=== PATIENT | male | born 1945 | race Caucasian/White ===

== ENCOUNTER 2017-06-10 17:41 | Inpatient (IN) | payer MEDICARE, OTHER ==
[2017-06-10 18:39] LABS: #Lymphocytes 1.8 thou/uL (1.20-3.40); #Monocytes 1.4 thou/uL (0.11-0.59); #Neutrophils 9.9 thou/uL (1.40-6.50); %Basophils 0.1 % (0.0-1.0); %Eosinophils 0.2 % (0.0-10.0); %Lymphocytes 13.7 % (21.0-51.0); %Monocytes 10.7 % (0.0-10.0); Hematocrit 35.8 % (42.0-52.0); Red Blood Cell (RBC) Count 3.73 mill/uL (4.70-6.10); White Blood Cell (WBC) Count 13.1 thou/uL (4.8-10.8)
[2017-06-10] MEDS ORDERED: Acetaminophen 500 MG TAB ONE (18:43)
[2017-06-10 18:47] LABS: PTT 30.7 SEC (22.9-36.1)
[2017-06-10 18:59] LABS: ALT (SGPT) 12 U/L (8-55); AST (SGOT) 21 U/L (5-34); Alkaline Phosphatase 88 U/L (40-150); Anion Gap 15 mmol/L (10-20); BUN (Urea Nitrogen) 14 mg/dL (8.4-25.7); CK (CPK) 216 U/L (30-200); Calc. Creatinine Clearance 0 mL/min (70-130); Calcium 8.9 mg/dL (7.8-10.44); Carbon Dioxide 25 mmol/L (23-31); Chloride 101 mmol/L (98-107); Estimated GFR-MDRD 86; Globulin 3.9 g/dL (2.4-3.5); Lipase 8 U/L (8-78); Protein, Total 6.6 g/dL (5.8-8.1)
--- NOTE | 2017-06-10 19:00 | RAD ---
RADIOGRAPH CHEST 1 VIEW: HISTORY: 71-year-old male with atrial fibrillation. FINDINGS: There are no air space densities, pulmonary edema, pneumothorax, or cardiomegaly. The lateral costo phrenic angles are sharp. There is a right suprahilar, paramediastinal pulmonary mass IMPRESSION: 1. No acute cardiopulmonary findings. 2. right suprahilar, paramediastinal pulmonary mass: evidence for lung cancer. See report of CTA of chest. kinza POS: TRUDI
[2017-06-10 19:06] LABS: Troponin I 0.131 ng/mL (< 0.028)
[2017-06-10 19:25] LABS: Lactic Acid - Sepsis 3.5 mmol/L (0.5-2.2)
[2017-06-10] MEDS ORDERED: Heparin 5,000 UNITS/ML VIAL ONE (19:30)
[2017-06-10] MEDS ORDERED: Piperacillin/Tazobactam 4.5 GM VIAL ONE (20:18)
[2017-06-10] MEDS ORDERED: Sodium Chloride 0.9% 100 ML ONE (20:18)
[2017-06-10 20:47] LABS: Prothrombin Time 17.2 SEC (12.0-14.7)
[2017-06-10] MEDS ORDERED: Acetaminophen 325 MG TAB PO PRN (20:48)
--- NOTE | 2017-06-10 21:06 | PDOC.EVN ---
Event Note - Event Note Event Note: [id number] H&P Dictated 1. Acute bilateral PE 2. SEPSIS 3. Afib RVR 4. htn 5. Lung mass Plan: see orders
--- NOTE | 2017-06-10 21:29 | CT ---
CT BRAIN NONCONTRAST: DATE: 06-10-17 TIME: 8:59 p.m. HISTORY: 71-year-old male with lung cancer, status post loss of consciousness. Rule out brain metastases. COMPARISON: None. FINDINGS: There is an approximately 2.5 x 1.5 cm well-circumscribed mass with moderately high attenuation loca justin along the anterior aspect of the tentorium cerebelli, to the left of midline. It displaces and m ildly distorts the left superior cerebellar peduncle and left inferior colliculus, mildly distorting without obstructing the aqueduct of Sylvius. There is no other area of mass effect. No midline shift. There is diffuse atrophy of the brain. No o bstructive hydrocephalus. No acute intraaxial or extraaxial hemorrhage, midline shift, or extraaxial fluid collection. The calvarium is intact. There is an old, depressed right zygomatic arch fracture . There are bilateral old lamina papyracea deformities. Small air fluid level in the right maxillary sinus. The rest of the paranasal sinuses, and the bilateral tympanomastoid cavities are clear. IMPRESSION: 1. An approximately 2.5 x 1.5 cm mass at the left tentorium cerebelli causing mild distortion of the left brachium conjunctivum (superior cerebellar peduncle). Differential diagnosis is meningoma tan claudia metastasis. 2. Recommend MRI of the brain with and without contrast for further evaluation. 3. Old fractures of right zygomatic arch and bilateral medial orbital magallanes. RAJI Shepard POS: TRUDI
--- NOTE | 2017-06-10 21:52 | CT ---
CTA THORAX WITH CONTRAST: (Computed Tomographic Angiography, chest(noncoronary) with contrast material, and image postprocessi ng) (PE protocol) HISTORY: 71-year-old male with atrial fibrillation with loss of consciousness, found down. Positive D-Dimer. Dr. Ivan discussed all important findings with Dr. Andre at time of this dictation. TECHNIQUE: IV injection of iodinated contrast: Isovue Scan acquisition timing attempted to coincide with iodinated contrast bolus reaching maximal density in pulmonary arteries. 3D MIP reconstructions. FINDINGS: There is moderately heavy clot burden in the left main pulmonary artery extending into left lower lo be pulmonary artery and its first order branches. There is also clot in the peripheral portion of th e right main pulmonary artery extending into the right lower lobe pulmonary artery and its first and second order branches. There is no clot in the pulmonic trunk. There is an approximately 7.5 cm anteroposterior x 2.5 cm transverse x 8 cm craniocaudal neoplastic pulmonary tumor mass in the right paramediastinal portion of the right upper lobe. It envelopes the right upper lobe bronchus, causing complete obstruction there. It severely narrows the origin of the anterior segmental branch of the right upper lobe bronchus. A few centimeters anterior/peripheral to this, there is a second primary spiculated lesion measuring approximately 1 x 1.5 cm, in the anterior segment of the right upper lobe, slightly anterior to the right hilum. There is an approximately 1 x 1.5 cm round soft tissue mass located somewhat peripherally in the lef t lower hilum, at a bifurcation of left lower lobe bronchi and pulmonary arteries. There is an approximately 0.7 cm noncalcified pulmonary nodule at the anterior aspect of the left lo wer lobe abutting the major fissure. There is a similar pulmonary nodule in the right middle lobe. T hese could represent pulmonary metastases. There is a 6 x 5.5 cm soft tissue mass surrounding the head of the left clavicle, causing bone destr uction. No pleural effusion or pneumothorax. There is an enlarged 2.5 x 1.5 cm right anterior paratracheal malignant mediastinal lymph node. No m ediastinal lymph nodes across the midline to the left. Approximately 2 cm malignant subcarinal media stinal lymph node is noted. No cardiomegaly. No thoracic aortic aneurysm or dissection. Large 5 x 4 cm left adrenal mass. 3.5 x 3 cm left adrenal mass. Irregularly shaped 3 x 2.5 cm metastatic mass i n the subcutaneous fat abutting the left lateral rib cage. There is a similar, but smaller such soft tissue mass abutting the left anterolateral chest wall slightly inferior and anterior to it, measur ing approximately 2 x 1.5 cm. IMPRESSION: 1. Bilateral central pulmonary thromboembolism with significant clot burden. 2. Large right upper lobe paramediastinal pulmonary tumor mass: evidence for primary lung cancer. 3. Much smaller satellite lesion in the anterior segment of the right upper lobe, which could be a s econdary primary lung cancer. 4. Malignant mediastinal lymphadenopathy. 5. Possibly a third primary small left lower lobe lung cancer abutting the left inferior hilum. 6. Two tiny noncalcified pulmonary nodules, one in the left lower lobe and one in the right middle l obe (versus anterior segment of right upper lobe), which could be pulmonary metastases. 7. Large metastatic mass destroying the head of the left clavicle. 8. Superficial soft tissue metastatic masses abutting the left lateral chest wall, two of them. 9. Bilateral adrenal metastatic masses. Code CR jn POS: TRUDI
[2017-06-10] MEDS ORDERED: Vancomycin HCl 1.25 GM in Sodium Chloride 0.9% 250 ML 250 ML IVPB SCH (22:45)
[2017-06-10 23:09] LABS: Troponin I 0.462 ng/mL (< 0.028)
--- NOTE | 2017-06-10 23:09 | ULT ---
ULTRASOUND WITH DOPPLER DUPLEX VENOUS LOWER EXTREMITIES BILATERAL: HISTORY: 71-year-old male with bilateral lower extremity edema. TECHNIQUE: Color flow Doppler, spectral waveform analysis of pulsed Doppler, and segovia-scale imaging with compre ssion and augmentation, were used to evaluate the bilateral common femoral, femoral, popliteal, post erior tibial, and superficial femoral, veins; and the proximal portions of the profunda femoral and greater saphenous, veins. FINDINGS: There is noncompressibility of several expanded veins filled with clot bilaterally. On the right, this involves the proximal, mid and distal portions of the superficial femoral vein, e xtending into the popliteal vein and the posterior tibial vein. There is blood flow around the clot. On the left, this involves the distal portion of the popliteal vein, and the posterior tibial vein w here there is no blood flow. IMPRESSION: Positive for bilateral acute deep vein thrombosis. RAJI Shepard POS: TRUDI
[2017-06-10 23:58] VITALS: BMI 25.5
[2017-06-11] MEDS: Sodium Chloride 0.9% 1,000 ML IV SCH ×2 (00:15→15:55)
[2017-06-11] MEDS: Diltiazem HCl 125 MG, Admixture Fee 1 EACH in Sodium Chloride 0.9% 100 ML SLOW IVP SCH ×2 (00:16→15:54)
[2017-06-11 01:21] LABS: Troponin I 0.516 ng/mL (< 0.028)
[2017-06-11] MEDS: Piperacillin/Tazobactam 3.375 GM in Sodium Chloride 0.9% 100 ML IVPB SCH ×2 (03:06→09:41)
[2017-06-11 04:38] LABS: Anion Gap 12 mmol/L (10-20); BUN (Urea Nitrogen) 15 mg/dL (8.4-25.7); Calc. Creatinine Clearance 102 mL/min (70-130); Calcium 8.6 mg/dL (7.8-10.44); Carbon Dioxide 26 mmol/L (23-31); Chloride 103 mmol/L (98-107); Estimated GFR-MDRD Greater than 90
[2017-06-11 04:45] LABS: #Eosinphils 0.1 thou/uL (0.0-0.7); #Lymphocytes 3.4 thou/uL (1.20-3.40); #Monocytes 1.7 thou/uL (0.11-0.59); #Neutrophils 7.8 thou/uL (1.40-6.50); %Basophils 0.3 % (0.0-1.0); %Eosinophils 0.4 % (0.0-10.0); %Lymphocytes 26.3 % (21.0-51.0); %Monocytes 12.8 % (0.0-10.0); Hematocrit 34.9 % (42.0-52.0); Mean Platelet Volume 6.9 fL (7.4-10.4); Red Blood Cell (RBC) Count 3.63 mill/uL (4.70-6.10); White Blood Cell (WBC) Count 12.9 thou/uL (4.8-10.8)
[2017-06-11 04:54] LABS: Troponin I 0.603 ng/mL (< 0.028)
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
[2017-06-11] MEDS ORDERED: FLU VACC TS2017-18 (>65YR) 0.5 ML SYRINGE IM ONE (09:00)
--- NOTE | 2017-06-11 12:16 | PDOC.PN ---
- Subjective Encounter Start Date: 06/11/17 Encounter Start Time: 12:00 Subjective: f/u for saddle embolus and bilat LE DVT's, A-fib with RVR on Cardizem -: gtt. CT of chest showing likely lung CA with mets to bone and adrenals. - Objective MAR Reviewed: Yes Vital Signs & Weight: Vital Signs (12 hours) Temp Pulse Resp Pulse Ox 06/11/17 07:50 97.7 F 109 H 24 H 100 06/11/17 07:00 97.7 F 06/11/17 04:00 97.6 F 06/11/17 01:06 97.6 F 113 H 25 H 100 Weight Weight 177 lb 14.609 oz Most Recent Monitor Data Heart Rate from ECG 127 NIBP 104/75 NIBP BP-Mean 89 Respiration from ECG 33 SpO2 100 I&O: 06/10/17 06/11/17 06/12/17 06:59 06:59 06:59 Intake Total 496.4 Output Total 250 Balance 246.4 Result Diagrams: 06/11/17 04:00 06/11/17 04:00 Additional Labs: Microbiology 06/10/17 19:09 Venous blood - Right Hand Blood Culture - Preliminary Specimen has been received and culture in progress. No Growth to date. 06/10/17 19:09 Venous blood - Left Hand Blood Culture - Preliminary Specimen has been received and culture in progress. No Growth to date. Laboratory Tests 06/10/17 06/10/17 06/10/17 18:28 18:28 22:31 WBC 13.1 H Hgb 12.0 L Lactic Acid Troponin I 0.131 H 0.462 H* 06/10/17 06/11/17 06/11/17 22:31 00:30 04:00 WBC Hgb Lactic Acid 2.1 Troponin I 0.516 H* 0.603 H* 06/11/17 04:00 WBC Hgb Lactic Acid 2.0 Troponin I Radiology Reviewed by me: Yes (CT chest - bilat extensive PE's, lung mass and mets) EKG Reviewed by me: Yes (Tele - A-fib with RVR in 120's) Phys Exam - Physical Examination alert, smiles, answers questions slowly HEENT: PERRLA, oral pharynx no lesions Neck: no JVD, supple diminished in bases Respiratory: no wheezing tachycardic Cardiovascular: irregular Gastrointestinal: soft, non-tender, no distention, positive bowel sounds Musculoskeletal: pulses present, edema present Neurological: normal sensation, moves all 4 limbs Psychiatric: A&O x 3 Skin: normal turgor, cap refill <2 seconds Dx/Plan (1) Acute respiratory failure with hypoxia Code(s): J96.01 - ACUTE RESPIRATORY FAILURE WITH HYPOXIA Status: Acute Comment: Secondary to PE's, continue O2 supplementation (2) Pulmonary emboli Code(s): I26.99 - OTHER PULMONARY EMBOLISM WITHOUT ACUTE COR PULMONALE Status : Acute Qualifiers: Pulmonary embolism type: saddle Comment: s/p tPa, continue anticoagulation after 24h, likely can take oral anticoagulation after d/c (3) DVT (deep venous thrombosis) Code(s): I82.409 - ACUTE EMBOLISM AND THOMBOS UNSP DEEP VN UNSP LOWER EXTREMITY Status: Acute Qualifiers: DVT location: lower extremity Chronicity: acute Laterality: bilateral Comment: Likely due to malignant process, oral anticoagulation (4) Lung mass Code(s): R91.8 - OTHER NONSPECIFIC ABNORMAL FINDING OF LUNG FIELD Status: Suspected Comment: Likely malignant lung mass due to lung CA, consider bx for definitive dx and options for mgmt, consider Hospice (5) Atrial fibrillation with RVR Code(s): I48.91 - UNSPECIFIED ATRIAL FIBRILLATION Status: Acute Comment: Rate remains uncontrolled on Cardizem, continue rate control measures - Plan plan discussed w/ family, continue antibiotics, PT/OT, social service coordinator, respiratory therapy, DVT proph w/SCDs continue supportive mgmt -: Continue Levaquin 750mg IV daily -: D/C Zosyn -: MRI brain pending -: Start oral anticoagulation in 24h post tPa * Ensure Enlive TID * AM lab: BMP, CBC
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
--- NOTE | 2017-06-11 16:23 | CON ---
DATE OF CONSULTATION: 06/11/2017 REASON FOR CONSULTATION: Atrial fibrillation. REFERRING PROVIDER: Ravinder Mccann M.D. HISTORY OF PRESENT ILLNESS: Mr. Brownlee is an unfortunate 71-year-old gentleman who recently presente d with a syncopal episode. He was seen and evaluated in the emergency room where he complained of s hortness of breath. Subsequent CT scan showed large bilateral PE. He underwent tPA due to hypotens ion and atrial fibrillation with RVR. His CT of the chest was also consistent with large right uppe r lobe pulmonary tumor mass with evidence for primary lung cancer in addition to much smaller satell ite lesions in the anterior segment of the right upper lobe, which may be secondary. During my interview with Mr. Brownlee, it appears he has had atrial fibrillation in the past, although he is not sure. He states he had an irregular heart rhythm in the past that was treated. He is uns ure whether anticoagulation therapy was recommended. He denies heart fluttering, palpitations or ot her associated symptoms. No previous history of shortness of breath per his account. PAST MEDICAL HISTORY: As above including skin grafts. MEDICATIONS: None. SOCIAL HISTORY: Quit all tobacco products 37 years ago. HOME MEDICATIONS: Include aspirin, metoprolol, gabapentin, Flonase, allopurinol, and cyclobenzaprin e. PHYSICAL EXAMINATION: GENERAL: Patient is a pleasant male who is in no acute distress. The patient appears his stated ag e. VITAL SIGNS: Blood pressure 131/72, pulse 127, respiratory rate 20. NEUROLOGIC: The patient is alert and oriented times 3 with no focal neurologic deficits. HEENT: Sclerae without icterus. Mouth has moist mucous membranes with normal pallor. NECK: No JVD. Carotid upstroke brisk. No bruits bilaterally. LUNGS: Clear to auscultation with unlabored respirations. BACK: No scoliosis or kyphosis. CARDIAC: Regular rate and rhythm with normal S1 and S2. No S3 or S4 noted. No significant rubs, m urmurs, thrills, or gallops noted throughout the precordium. PMI is not displaced. There is no par asternal heave. ABDOMEN: Soft, nontender, nondistended. No peritoneal signs present. No hepatosplenomegaly. No a bnormal striae. EXTREMITIES: 2+ femoral and 2+ dorsalis pedis pulses. No cyanosis, clubbing, or edema. SKIN: No gross abnormalities. PERTINENT LABORATORY DATA: Hemoglobin 11.6 and his troponin 0.516. IMPRESSION: 1. Massive pulmonary embolism, status post tPA. 2. Likely lung cancer with metastasis. 3. Atrial fibrillation. RECOMMENDATIONS: His elevated troponin likely is secondary to large PE. He appears to be hemodynam ically stable. At this point, he is currently on IV Cardizem. We will add p.o. Cardizem to his IV and also titrating his IV medication down. Antibiotic therapy will be continued.
--- NOTE | 2017-06-11 19:43 | CON ---
DATE OF CONSULTATION: 06/11/2017 HISTORY OF PRESENT ILLNESS: Mr. Paul Brownlee is a 71-year-old gentleman who appears to be encephalo pathic. Clearly, he is a very poor historian. He has a stepdaughter and a sister who give us a scr atchy history, says that the patient normally seeks care at the [facility]. He was apparently foun d down at home for about 6 hours to what we know. He was in rapid atrial fibrillation and was given Cardizem. In course of his workup, he then was found to have multiple medical problems which have included bilateral DVT lower extremity, bilateral pulmonary emboli. Additionally, there was a right paramediastinal mass involved within the right upper lobe bronchus. That is a large right paramedi astinal mass. There is mediastinal adenopathy. Small left lower lung infrahilar mass seen on the C T and initially, there may be small nodule seen in the right middle lobe. A large metastatic mass t his time head of the left clavicle with bilateral adrenal metastases, soft tissue metastatic masses abutting the left lateral chest wall. A CT of the head also shows what appears to be cm mass in the left tentorium cerebelli. The patient has no list of medicine form, but he says he was taking medicine for gout. SOCIAL/FAMILY HISTORY: Former smoker, quit smoking 27 years ago. REVIEW OF SYSTEMS: Otherwise, 10-point negative. PHYSICAL EXAMINATION: VITAL SIGNS: Sats are 100% on 2 liters, respiratory rate 24, pulse 79, blood pressure 190/73. CHEST: Decreased breath sounds without any wheezing. CARDIAC: Normal S1 and S2. No gallops. ABDOMEN: Soft. No masses. LABORATORY EXAMINATION: White count 10,000, H\T\H 11 and 34, platelet count is normal. Electrolyte s are normal. IMPRESSION: 1. Bilateral pulmonary emboli along with deep venous thrombosis. 2. Hypocoagulable state probably from extensive metastatic bronchogenic carcinoma with atrial fibri llation for advanced age. PLAN: To my surprise, he was given TPA in the ER. He is now going to be on a heparin protocol foll owing the TPA. I agree with CV consultation for a filter. Somewhere down the line when he is stabl e, we will consider to make a tissue diagnosis. His long-term prognosis is grave. We will follow.
[2017-06-12] MEDS: Sodium Chloride 0.9% 1,000 ML IV SCH ×2 (04:21→15:08)
[2017-06-12 05:14] LABS: Anion Gap 13 mmol/L (10-20); BUN (Urea Nitrogen) 17 mg/dL (8.4-25.7); Calc. Creatinine Clearance 110 mL/min (70-130); Calcium 8.6 mg/dL (7.8-10.44); Carbon Dioxide 25 mmol/L (23-31); Chloride 103 mmol/L (98-107); Estimated GFR-MDRD Greater than 90
[2017-06-12 05:39] LABS: Band 4 % (5-11); Hematocrit 35.9 % (42.0-52.0); Mean Platelet Volume 7.2 fL (7.4-10.4); Neutrophil 74 % (42-75); Red Blood Cell (RBC) Count 3.72 mill/uL (4.70-6.10); White Blood Cell (WBC) Count 13.9 thou/uL (4.8-10.8)
[2017-06-12] MEDS ORDERED: Diltiazem HCl 125 MG, Admixture Fee 1 EACH in Sodium Chloride 0.9% 100 ML SLOW IVP SCH (08:17)
[2017-06-12 09:26] LABS: Hematocrit 34.9 % (42.0-52.0)
--- NOTE | 2017-06-12 09:40 | PRG ---
DATE OF SERVICE: 06/12/2017 This morning he is awake, alert, responsive. PHYSICAL EXAMINATION: VITAL SIGNS: Blood pressure is 107/77, O2 sats are 98, pulse 112. He denies difficulty breathing. CHEST: Decreased breath sounds without any wheezing. CARDIAC: Normal S1-S2. No gallops. ABDOMEN: Soft. No masses. IMPRESSION: 1. Multiple mets probably primary is lung. 2. Pulmonary emboli with deep venous thrombosis. Status post t-PA. 3. Supraventricular tachycardia. PLAN: Continue heparin. Continue supportive care, nutrition. I am going to wait for 24 hours before I do a CT guided biopsy. I will follow.
--- NOTE | 2017-06-12 10:41 | PQF ---
Date: 06-12-17 ATTN: DR. DAVID GRAMAJO Please exercise your independent, professional judgment in responding to the clarification form. Clinical indicators are provided on the bottom of this form for your review Please check appropriate box(s): [ ] Protein Calorie Malnutrition: [ ] Mild [ ] Moderate [ ] Severe [ ] Other Malnutrition (please specify) __ [ ] Other diagnosis [ x ] Unable to determine In addition, please specify: Present on Admission (POA): [ ] Yes [ ] No [ ] Unable to determine CLINICAL INDICATORS - SIGNS / SYMPTOMS / LABS BMI: 25.5 ALBUMIN: 2.7 H&P: BILATERAL LOWER EXTREMITY 2+ EDEMA PRESENT CONSULT NOTE JACKIE MONTEMAYOR 06-11-17: THE PATIENT ADMITS OVER THE LAST SEVERAL MONTHS HE HAS HAD 40 POUNDS OF UNINTENTIONAL WEIGHT LOSS OR LOSS OF APPETITE. HE HAS BECOME MORE WEAK AND UNABLE TO PERFORM HIS ADL'S. DIETARY CONSULT 06-11-17: 6 MONTHS AGO, HE WEIGHTED ABOUT 210#, PATIENT REPORTED HE TYPICALLY ONLY EATS 1 FROZEN DINNER PER DAY FOR " A LONG TIME." MILD TEMPORAL MUSCLE WASTING NOTED RISK FACTORS: * CONSULT NOTE JACKIE MONTEMAYOR 06-11-17: THE PATIENT ADMITS OVER THE LAST SEVERAL MONTHS HE HAS HAD 40 POUNDS OF UNINTENTIONAL WEIGHT LOSS OR LOSS OF APPETITE. HE HAS BECOME MORE WEAK AND UNABLE TO PERFORM HIS ADL'S. * CONSULT NOTE JACKIE MONTEMAYOR 06-11-17: METASTATIC LUNG CA WITH POSSIBLE BRAIN MET AND DESTRUCTIVE L CLAVICULAR METASTASIS. TREATMENT: DIETARY CONSULT 06-11-17: ADAT WHEN MEDICALLY INDICATED TO LOW SODIUM DIET, ENSURE ENLIVE SUPPLEMENTATION BID AND PRN, RECOMMEND NUTRITION PRESCRIPTION (This form is maintained as a part of the permanent medical record) 2014 [employer], [employer]. All Rights Reserved [email or web address] Office: [phone] [email or web address]
--- NOTE | 2017-06-12 10:59 | PQF ---
DATE: 06-12-17 ATTN: DR. DAVID GRAMAJO Please exercise your independent, professional judgment in responding to the clarification form. Clinical indicators are provided on the bottom of this form for your review Please check appropriate box(s) to clarify if the following diagnosis has been ruled in our ruled out: SEPSIS (CDI/Coding list diagnosis here) [ ] Ruled in diagnosis [ ] Continue to treat [ ] Resolved [ x ] Ruled out diagnosis [ ] Other diagnosis [ ] Unable to determine In addition, please specify: Present on Admission (POA): [ ] Yes [ ] No [ ] Unable to determine For continuity of documentation, please document condition throughout progress notes and discharge summary. Thank You. CLINICAL INDICATORS - SIGNS / SYMPTOMS / LABS ER DIAGNOSIS: BILATERAL PE, CANCER PULMONARY W METS, DVT, SEPSIS H&P: SEPSIS, ETIOLOGY UNCLEAR. EVENT NOTE DR. KUMAR 06-10-17: SEPSIS WBC: 06-10-17 TO 06-12-17: 13.1, 12.9, 13.9 LACTIC ACID: 06-10-17: 3.5 PULSE: 06-10-17 TO 06-12-17: 121, 113, 109, 118, 112 RR: 06-10-17 TO 06-12-17: 25, 25, 24, 25, 25 RISK FACTORS: PN DR. GRAMAJO 06-11-17: CT SHOWING LIKELY CA WITH METS TO BONE AND ADRENALS EXTREMES OF AGE TREATMENTS: CARDIAC MONITORING IN ICU (06-10-17) LEVAQUIN, (06-11-17) ZOSYN , (06-10-17) VANCOMYCIN SERIAL LABS (This form is maintained as a part of the permanent medical record) 2014 [employer], [employer]. All Rights Reserved MTDD
[2017-06-12] MEDS: HYDROcodone/Acetaminophen 5/325 mg Tablet PO PRN ×2 (12:04→22:10)
--- NOTE | 2017-06-12 14:32 | PDOC.PN ---
- Subjective Encounter Start Date: 06/12/17 Encounter Start Time: 14:30 Subjective: f/u for PE's and DVT's likely due to lung cancer. s/p anterior chest bx -: with pathology pending to confirm dx. Heparin to restart this pm post -: bx. - Objective MAR Reviewed: Yes Vital Signs & Weight: Vital Signs (12 hours) Temp Pulse Resp Pulse Ox 06/12/17 11:00 97.9 F 06/12/17 08:42 112 H 06/12/17 07:33 98.3 F 112 H 25 H 98 06/12/17 07:00 98.3 F 06/12/17 04:00 98.6 F Weight Admit Weight 177 lb Weight 177 lb 14.609 oz Most Recent Monitor Data Heart Rate from ECG 98 NIBP 113/71 NIBP BP-Mean 94 Respiration from ECG 26 SpO2 97 I&O: 06/11/17 06/12/17 06/13/17 06:59 06:59 06:59 Intake Total 496.4 2318.3 430 Output Total 250 665 Balance 246.4 1653.3 430 Result Diagrams: 06/12/17 09:14 06/12/17 04:12 Additional Labs: Microbiology 06/10/17 19:09 Venous blood - Right Hand Blood Culture - Preliminary Specimen has been received and culture in progress. No Growth to date. 06/10/17 19:09 Venous blood - Right Hand Blood Culture - Preliminary NO GROWTH AT 48 HOURS 06/10/17 19:09 Venous blood - Left Hand Blood Culture - Preliminary Specimen has been received and culture in progress. No Growth to date. 06/10/17 19:09 Venous blood - Left Hand Blood Culture - Preliminary NO GROWTH AT 48 HOURS Laboratory Tests 06/10/17 06/10/17 06/10/17 18:28 18:28 22:31 WBC 13.1 H Hgb 12.0 L Lactic Acid Troponin I 0.131 H 0.462 H* Carcinoembryonic Ag 06/10/17 06/11/17 06/11/17 22:31 00:30 04:00 WBC Hgb 11.6 L Lactic Acid 2.1 Troponin I 0.516 H* Carcinoembryonic Ag 06/11/17 06/11/17 06/11/17 04:00 04:00 11:58 WBC Hgb Lactic Acid 2.0 Troponin I 0.603 H* Carcinoembryonic Ag 57.98 H 06/12/17 04:12 WBC Hgb 11.6 L Lactic Acid Troponin I Carcinoembryonic Ag EKG Reviewed by me: Yes (Tele - A-fib in low 100's) Phys Exam - Physical Examination Constitutional: NAD HEENT: PERRLA, oral pharynx no lesions Neck: no JVD, supple Respiratory: no wheezing, clear to auscultation bilateral Cardiovascular: irregular Gastrointestinal: soft, non-tender, no distention, positive bowel sounds Musculoskeletal: pulses present, edema present Neurological: normal sensation, moves all 4 limbs Psychiatric: A&O x 3 Skin: normal turgor, cap refill <2 seconds Dx/Plan (1) Acute respiratory failure with hypoxia Code(s): J96.01 - ACUTE RESPIRATORY FAILURE WITH HYPOXIA Status: Acute Comment: Secondary to PE's, continue O2 supplementation, pulmonary support (2) Pulmonary emboli Code(s): I26.99 - OTHER PULMONARY EMBOLISM WITHOUT ACUTE COR PULMONALE Status : Acute Qualifiers: Pulmonary embolism type: saddle Comment: s/p tPa, continue anticoagulation after 24h, likely can take oral anticoagulation after d/c, resume Heparin gtt post chest wall bx this pm (3) DVT (deep venous thrombosis) Code(s): I82.409 - ACUTE EMBOLISM AND THOMBOS UNSP DEEP VN UNSP LOWER EXTREMITY Status: Acute Qualifiers: DVT location: lower extremity Chronicity: acute Laterality: bilateral Comment: Likely due to malignant process, oral anticoagulation on d/c (4) Lung mass Code(s): R91.8 - OTHER NONSPECIFIC ABNORMAL FINDING OF LUNG FIELD Status: Suspected Comment: Likely malignant lung mass due to lung CA, bx pending, consider Hospice (5) Atrial fibrillation with RVR Code(s): I48.91 - UNSPECIFIED ATRIAL FIBRILLATION Status: Acute Comment: Rate remains uncontrolled on Cardizem, continue rate control measures - Plan plan discussed w/ family, continue antibiotics, PT/OT, social media campaign manager, respiratory therapy Continue Heparin gtt for short term and plan to transition to po OAC -: Hospice/Palliative care options -: Continue Levaquin 750mg IV daily -: MRI brain pending -: Await final bx results * Continue Cardizem 240mg daily * AM lab: BMP, CBC
[2017-06-12] MEDS: Heparin 25,000 units/D5W 500 ML IVPB SCH (16:50)
--- NOTE | 2017-06-12 18:19 | CON ---
DATE OF CONSULTATION: 06/12/2017 Ms. Brownlee's status is unchanged. His heart rate continues to be elevated. He is on IV Cardizem. PHYSICAL EXAMINATION: VITAL SIGNS: Blood pressure 136/70, pulse 118, temperature afebrile. LUNGS: Rales bilaterally. CARDIAC: Irregularly irregular. ABDOMEN: Soft, nontender, nondistended. EXTREMITIES: There is 1+ pitting edema. PERTINENT LABORATORY DATA: Hemoglobin 11.3, creatinine 0.69. IMPRESSION: 1. Bilateral pulmonary embolism status post TPA. 2. Lung cancer with metastatic disease. 3. Atrial fibrillation with rapid ventricular response. RECOMMENDATIONS: Increase calcium channel veronica to oral Cardizem 240 q.a.m. with first dose now. We will decrease IV Cardizem to 2.5 q.a.m. We will discuss anticoagulation therapy with primary tea m. May consider IVC filter.
--- NOTE | 2017-06-12 21:05 | MRI ---
MRI BRAIN WITH AND WITHOUT CONTRAST: 06/12/17 Multiplanar and multisequential imaging of the brain obtained. Postcontrast images obtained after ad ministering 17 mL of Multihance IV. HISTORY: Lung cancer with mets. Recent CT revealed a mass lesion in the cerebellum. FINDINGS: There is a rim enhancing mass in the superior cerebellum located in the midline and to the left of t he midline. Postcontrast images show a central cystic component with ring enhancement and a solid no dular component superiorly. Measurements are recorded at 2.0 cm craniocaudal dimension in the blanco l plane x approximately 2.0 cm width. It is located just posterior to the fourth ventricle and effac es the posterior aspect of the fourth ventricle to the left of midline at the level of the cerebella r peduncle. No other enhancing lesion identified in the brain. FLAIR sequence shows only minimal surrounding ana rosa ma. There is mild cortical atrophy. Mild chronic ischemic white matter change. Cerebral arteries and vascular arteries show flow voids. Paranasal sinuses and mastoids are clear. IMPRESSION: Ring enhancing mass in the cerebellum superiorly as described above. Metastatic lesion will be suspe cted given the known history of lung cancer. There are no other lesions identified in the brain. POS: YENI
--- NOTE | 2017-06-12 23:08 | CT ---
CT GUIDED LEFT CLAVICULAR MASS BIOPSY: 06/12/17 HISTORY: 71-year-old male with multiple metastatic lesions. TECHNIQUE: The soft tissue tumor component destroying the left clavicular head was selected to be biopsied. Sig cosme informed consent was obtained. The skin over the left clavicular head was cleaned with Chlorapre p. A 25 gauge needle was used to apply buffered lidocaine superficially and deeply, from a medial ap proach, obliquely almost horizontally. Because the lesion was too superficial to allow purchase of a n introducer needle, The introducer needle was not used. Instead, the distal tip of an 18 gauge biop sy needle was placed through the skin surface, in tandem with the 25 gauge needle, and the gun was f ired, yielding a 2.5 cm core tissue sample which was placed on a slide, and given to Dr. Chun of Pathology for preliminary touch preparation analysis, which demonstrated non-small cell malignant ti ssue. A second pass was made, the sample of which was placed directly into formalin. The 25 gauge ne edle was removed. Compression was applied until hemostasis was achieved. The patient tolerated the p rocedure well. There was no complication. FINDINGS: Step CT images demonstrate the 25 gauge needle in the soft tissue tumor component at the anterior as pect of the partially destroyed left clavicular head. The 18 gauge needle was not imaged, and there is no 17.5 gauge introducer needle. IMPRESSION: 1. Successful 18 gauge core biopsy of metastatic left clavicular head mass x2. 2. Preliminary results are positive for malignant neoplasm, probably non-small cell carcinoma. POS: SUSAN
[2017-06-13] MEDS: Sodium Chloride 0.9% 1,000 ML IV SCH ×2 (02:31→16:56)
[2017-06-13] MEDS: Heparin 10,000 UNITS/ 10 ML VIAL SLOW IVP SCH ×2 (05:03→12:29)
[2017-06-13] MEDS: HYDROcodone/Acetaminophen 5/325 mg Tablet PO PRN ×2 (08:52→20:29)
--- NOTE | 2017-06-13 09:43 | PRG ---
DATE OF SERVICE: 06/13/2017 This morning he is awake, alert, responsive, on the vent. Biopsy of his left clavicle. MRI of his brain shows what appears to be the front of his head shows a right-sided lesion in the ce rebellum. The patient is denying any difficulty breathing or pain. PHYSICAL EXAMINATION: VITAL SIGNS: Blood pressure 135/75, O2 sat 97% on 2 liters, respirations 18. CHEST: Chest reveals decreased breath sounds, no wheezing. CARDIAC: Normal S1, S2. ABDOMEN: Soft, no masses. IMPRESSION: 1. Metastatic lung cancer, probably non-small cell. 2. Pulmonary embolus, deep venous thrombosis on IV heparin. PLAN: He can be transferred out of the ICU. Probably could switch over to Lovenox tomorrow if no a dditional surgical procedure planned. His long-term prognosis is poor. Await input from Oncology regarding treatment plan.
[2017-06-13] MEDS: Heparin 25,000 units/D5W 500 ML IVPB SCH (12:38)
--- NOTE | 2017-06-13 15:42 | PDOC.PN ---
- Subjective Encounter Start Date: 06/13/17 Encounter Start Time: 15:30 Subjective: f/u for PE's and DVT secondary to likely metastatic lung cancer. Awaiting -: bx results to confirm dx. MRI brain showing cerebellar mass consistent with -: mets. Pt stating he is weak and tired. - Objective MAR Reviewed: Yes Vital Signs & Weight: Vital Signs (12 hours) Temp Pulse Resp Pulse Ox 06/13/17 11:00 98.6 F 06/13/17 08:00 98.0 F 120 H 16 96 06/13/17 07:32 97 06/13/17 07:00 98.0 F Weight Admit Weight 177 lb Weight 177 lb 14.609 oz Most Recent Monitor Data Heart Rate from ECG 112 NIBP 138/66 NIBP BP-Mean 101 Respiration from ECG 24 SpO2 100 I&O: 06/12/17 06/13/17 06/14/17 06:59 06:59 06:59 Intake Total 2318.3 2291 240 Output Total 665 950 Balance 1653.3 1341 240 Result Diagrams: 06/12/17 09:14 06/12/17 04:12 Radiology Reviewed by me: Yes (MRI Brain - ring enhancing mass L cerebellar region) EKG Reviewed by me: Yes (Tele - A-fib in low 100's) Phys Exam - Physical Examination weak, ill-appearing, responds slowly to questions HEENT: PERRLA, oral pharynx no lesions Neck: no JVD, supple Respiratory: no wheezing, clear to auscultation bilateral tachycardic Cardiovascular: irregular Gastrointestinal: soft, non-tender, no distention, positive bowel sounds Musculoskeletal: pulses present, edema present Neurological: moves all 4 limbs Psychiatric: A&O x 3 Skin: normal turgor, cap refill <2 seconds Dx/Plan (1) Acute respiratory failure with hypoxia Code(s): J96.01 - ACUTE RESPIRATORY FAILURE WITH HYPOXIA Status: Acute Comment: Secondary to PE's, continue O2 supplementation, pulmonary support (2) Pulmonary emboli Code(s): I26.99 - OTHER PULMONARY EMBOLISM WITHOUT ACUTE COR PULMONALE Status : Acute Qualifiers: Pulmonary embolism type: saddle Comment: s/p tPa, d/c Heparin gtt, start Lovenox 80mg sc q12h (3) DVT (deep venous thrombosis) Code(s): I82.409 - ACUTE EMBOLISM AND THOMBOS UNSP DEEP VN UNSP LOWER EXTREMITY Status: Acute Qualifiers: DVT location: lower extremity Chronicity: acute Laterality: bilateral Comment: Likely due to malignant process, oral anticoagulation on d/c (4) Lung mass Code(s): R91.8 - OTHER NONSPECIFIC ABNORMAL FINDING OF LUNG FIELD Status: Suspected Comment: Likely malignant lung mass due to lung CA, bx pending, Palliative care evaluation and likely Hospice on d/c (5) Atrial fibrillation with RVR Code(s): I48.91 - UNSPECIFIED ATRIAL FIBRILLATION Status: Acute Comment: Rate remains uncontrolled on Cardizem, continue rate control measures - Plan social media community manager, respiratory therapy Continue supportive care -: Await final bx results to confirm dx -: D/C Heparin gtt -: Start Lovenox 80mg sc q12 -: Continue IVF NS 75ml/h * AM lab: CBC * Transfer to Oncology * Poor prognosis
[2017-06-13] MEDS ORDERED: Enoxaparin Sodium 80 MG/0.8 ML SYRINGE SC SCH ×2 (17:00→21:00)
--- NOTE | 2017-06-13 20:01 | PRG ---
DATE OF SERVICE: 06/13/2017 SUBJECTIVE: Mr. Brownlee's status is stable. His heart rate is in the 100s. He thought to have a Car dizem. We increased his p.o. Cardizem to 360 q.a.m. OBJECTIVE: VITAL SIGNS: Blood pressure 140/64, pulse 96, temperature afebrile. LUNGS: Mild rales and rhonchi. HEART: Irregularly irregular. ABDOMEN: Soft, nontender, nondistended. EXTREMITIES: No edema. LABORATORY DATA: Hemoglobin 11.3, creatinine 0.69. IMPRESSION: 1. Atrial fibrillation. 2. Metastatic lung cancer. 3. Pulmonary embolism. RECOMMENDATIONS: 1. He has been put on heparin which we will continue. He will be okay from my standpoint per Dr. Lenard Gautam to transfer to [facility] and consider Eliquis versus Xarelto. 2. Continue Cardizem. No further recommendations.
[2017-06-14] MEDS: HYDROcodone/Acetaminophen 5/325 mg Tablet PO PRN ×4 (01:56→20:24)
[2017-06-14] MEDS: Sodium Chloride 0.9% 1,000 ML IV SCH ×2 (04:17→20:27)
[2017-06-14] MEDS: Enoxaparin Sodium 80 MG/0.8 ML SYRINGE SC SCH ×2 (08:53→22:12)
[2017-06-14 09:44] LABS: Hematocrit 36.6 % (42.0-52.0)
--- NOTE | 2017-06-14 10:06 | PDOC.PN ---
- Subjective Encounter Start Date: 06/14/17 Encounter Start Time: 10:10 Subjective: f/u for PE's and DVT secondary to metastatic lung cancer. Awaiting final -: bx results for full confirmation. Transitioned to Lovenox from Heparin gtt. -: Palliative care consulted. - Objective MAR Reviewed: Yes Vital Signs & Weight: Vital Signs (12 hours) Temp Pulse Resp Pulse Ox 06/14/17 07:03 97.6 F 101 H 14 97 06/14/17 04:00 98.8 F 06/14/17 00:00 99.2 F Weight Admit Weight 177 lb Weight 177 lb 14.609 oz Most Recent Monitor Data Heart Rate from ECG 112 NIBP 119/61 NIBP BP-Mean 93 Respiration from ECG 19 SpO2 98 I&O: 06/13/17 06/14/17 06/15/17 06:59 06:59 06:59 Intake Total 2291 1558 Output Total 950 1155 Balance 1341 403 Result Diagrams: 06/15/17 05:30 06/15/17 05:30 EKG Reviewed by me: Yes (Tele - A-fib in 110's-120's) Phys Exam - Physical Examination Constitutional: NAD HEENT: PERRLA, oral pharynx no lesions Neck: no JVD, supple Respiratory: no wheezing tachycardic Cardiovascular: irregular Gastrointestinal: soft, non-tender, no distention, positive bowel sounds mild edema Musculoskeletal: pulses present Neurological: normal sensation, moves all 4 limbs Psychiatric: A&O x 3 Skin: normal turgor, cap refill <2 seconds Dx/Plan (1) Acute respiratory failure with hypoxia Code(s): J96.01 - ACUTE RESPIRATORY FAILURE WITH HYPOXIA Status: Acute Comment: Secondary to PE's, continue O2 supplementation, wean O2 as clinically tolerated (2) Pulmonary emboli Code(s): I26.99 - OTHER PULMONARY EMBOLISM WITHOUT ACUTE COR PULMONALE Status : Acute Qualifiers: Pulmonary embolism type: saddle Comment: s/p tPa, d/c Heparin gtt, start Lovenox 80mg sc q12h, can transition to OAC in 24-48h (3) DVT (deep venous thrombosis) Code(s): I82.409 - ACUTE EMBOLISM AND THOMBOS UNSP DEEP VN UNSP LOWER EXTREMITY Status: Acute Qualifiers: DVT location: lower extremity Chronicity: acute Laterality: bilateral Comment: Likely due to malignant process, oral anticoagulation on d/c (4) Lung mass Code(s): R91.8 - OTHER NONSPECIFIC ABNORMAL FINDING OF LUNG FIELD Status: Suspected Comment: Likely malignant lung mass due to lung CA, bx pending, Palliative care evaluation and likely Hospice on d/c (5) Atrial fibrillation with RVR Code(s): I48.91 - UNSPECIFIED ATRIAL FIBRILLATION Status: Acute Comment: Labile rate, Digoxin 0.5mg IV x 1 then 0.25mg po daily, continue Cardizem 360mg daily - Plan plan discussed w/ family, PT/OT, social scientist, respiratory therapy Stable currently -: Continue Lovenox 80mg sc q12h -: Likely transition to OAC in next 24-48h -: Await final bx results -: Palliative care, likely hospice on d/c * AM lab: H/H with Plts * Transfer to Med Oncology floor * Likely home in 24h
--- NOTE | 2017-06-14 10:37 | PRG ---
DATE OF SERVICE: 06/14/2017 This morning he is awake, alert and responsive. Pain, but no shortness of breath. PHYSICAL EXAMINATION: VITAL SIGNS: Temperature 98, pulse 101, blood pressure 190/60, sats are 96%. CHEST: Chest revealed decreased breath sounds without any wheezing. CARDIAC: Normal S1, S2. ABDOMEN: Soft, no masses. IMPRESSION: 1. Status post pulmonary embolus and deep venous thrombosis. 2. Multiple mets. PLAN: Await path. Switch over to Lovenox. Could be transferred out of the ICU.
[2017-06-14] MEDS ORDERED: Digoxin 0.5 MG/2 ML AMP SLOW IVP SCH (10:45)
[2017-06-14] MEDS ORDERED: Metoprolol Tartrate 25 MG TAB PO SCH ×2 (12:15→21:00)
--- NOTE | 2017-06-14 12:42 | PRG ---
DATE OF SERVICE: 06/14/2017 SUBJECTIVE: Mr. Brownlee continues to have elevated heart rate. He is off IV Cardizem. He is current ly on p.o. Cardizem at 360 q.a.m. He is also on digoxin. OBJECTIVE: VITAL SIGNS: Blood pressure 131/69, pulse 121, respirations 20. LUNGS: Clear to auscultation. HEART: Irregularly irregular. ABDOMEN: Soft, nontender, and nondistended. EXTREMITIES: No edema. PERTINENT LABORATORY DATA: Hemoglobin 11.7, creatinine 0.69. IMPRESSION: 1. Atrial fibrillation with rapid ventricular rate. 2. Pulmonary embolus. 3. Metastatic lung cancer. RECOMMENDATIONS: 1. Add p.o. Lopressor. 2. Decrease digoxin to 0.125 q.a.m. 3. Continue Cardizem.
[2017-06-14] MEDS ORDERED: Morphine 2 MG/ML SYRINGE SLOW IVP PRN (22:43)
[2017-06-15 05:49] LABS: Hematocrit 37.4 % (42.0-52.0)
[2017-06-15 06:06] LABS: Calc. Creatinine Clearance 134 mL/min (70-130); Estimated GFR-MDRD Greater than 90
[2017-06-15] MEDS: Sodium Chloride 0.9% 1,000 ML IV SCH (08:51)
[2017-06-15] MEDS: Enoxaparin Sodium 80 MG/0.8 ML SYRINGE SC SCH (08:52)
[2017-06-15] MEDS ORDERED: Metoprolol Tartrate 25 MG TAB PO SCH (09:00)
[2017-06-15] MEDS: HYDROcodone/Acetaminophen 5/325 mg Tablet PO PRN ×2 (09:05→15:23)
--- NOTE | 2017-06-15 11:09 | PRG ---
DATE OF SERVICE: 06/15/2017 This is a 71-year-old gentleman. Biopsies from the left clavicular head shows adenocarcinoma. It appears that more than likely this is primary lung pathology. He denies any difficulty breathing . PHYSICAL EXAMINATION: VITAL SIGNS: Blood pressure is 130/80, pulse 80, respirations 18. CHEST: Chest reveals decreased breath sounds, no wheezing. CARDIAC: Normal S1, S2, no gallops. ABDOMEN: Soft, no masses. IMPRESSION: 1. Bilateral pulmonary emboli and deep venous thrombosis. 2. Metastatic lung cancer. PLAN: Await disposition by Oncology. Continue Lovenox and supportive care.
--- NOTE | 2017-06-15 12:11 | CON ---
DATE OF SERVICE: 06/15/2017 SUBJECTIVE: Mr. Brownlee's status is unchanged. His heart rate continues to be elevated. He is curre ntly on Cardizem in addition to digoxin and metoprolol. OBJECTIVE: VITAL SIGNS: Blood pressure 133/66, pulse 107, temperature 97.4. LUNGS: Clear to auscultation. CARDIAC: Irregularly irregular. No new murmurs, rubs, thrills, or gallops. ABDOMEN: Soft, nontender, nondistended. EXTREMITIES: No edema. IMPRESSION: 1. Atrial fibrillation. 2. Likely metastatic lung cancer. RECOMMENDATIONS: 1. Increase metoprolol to 25 b.i.d. in addition to digoxin and diltiazem too. Unfortunately, progn osis likely poor. 2. Hospice is being considered.
[2017-06-15] MEDS ORDERED: Digoxin 0.25 MG TAB PO SCH ×2 (13:00→15:30)
--- NOTE | 2017-06-15 14:18 | DIS ---
DATE OF ADMISSION: 06/10/2017 DATE OF DISCHARGE: 06/15/2017 DISCHARGE DIAGNOSES: 1. Stage IV adenocarcinoma of the lung. 2. Bilateral pulmonary embolus secondary to #1. 3. Acute hypoxic respiratory failure secondary to #2. 4. Deep venous thrombosis secondarily to #1. 5. Atrial fibrillation with rapid ventricular response with variable rate control on Xarelto therap y. 6. Left cerebellum brain metastasis. CONSULTATIONS: Dr. Gautam with Pulmonology Service. Dr. Clements with Medical Oncology service. PERTINENT LABORATORY DATA AND X-RAY FINDINGS: Basic metabolic profile within normal limits. Lactic acid level ranged between 2.0-3.5. Troponin I ranged between 0.131-0.603, total CK 216, carcinoemb ryonic antigen 57.98. CBC showed a white blood cell count ranging between 12.9-13.9, hemoglobin ran ged between 11.3-12.0. Blood cultures x2 from 06/10/2017, showed no growth at 48 hours. Portable c hest x-ray dated 06/10/2017, showed no acute cardiopulmonary process. Right suprahilar paramediasti nal pulmonary mass. CT angiogram of the chest dated 06/10/2017, showed bilateral central pulmonary thromboembolism with extensive clot burden. Large right upper lobe paramediastinal pulmonary mass c oncerning for lung cancer. Malignant mediastinal lymphadenopathy. Left lower lobe lung mass concer heriberto for metastatic process. Large metastatic mass with destruction of the head of the left clavicl e. Left lateral chest wall metastatic mass and bilateral adrenal metastatic masses. Bilateral lowe r extremity venous Doppler study dated 06/10/2017, showed bilateral acute DVTs. CT of the brain wit hout contrast dated 06/10/2017, showed 2.5 x 1.5 cm mass of the left tentorium cerebelli. MRI of th e brain dated 06/12/2017 showed ring enhancing mass in the cerebellum consistent with metastatic pro cess. The anterior chest wall biopsy dated 06/12/2017, showed metastatic adenocarcinoma. HOSPITAL COURSE: Patient was admitted to the critical care unit after initially presenting with dys pnea, fever, and generalized weakness. The patient underwent extensive evaluations with multiple ch est imaging modalities showing evidence of pulmonary masses consistent with adenocarcinoma after bio psy. The patient was also noted with associated extensive bilateral central pulmonary embolus as we ll as bilateral lower extremity DVTs. The patient was placed on heparin infusion as well as oxygen support after patient was noted to be hypoxic with associated dyspnea and respiratory distress. The patient underwent extensive evaluation due to pulmonary mass with involvement of Medical Oncology S ervice as well as Pulmonology Service. The patient underwent CT-guided biopsy of the left anterior chest wall mass confirming the diagnosis of adenocarcinoma. The patient was also noted with concomi tant atrial fibrillation with rapid ventricular response with difficult to control rate, placed on C ardizem infusion as well as evaluation by the Cardiology Service. The patient eventually transition ed to oral Cardizem with additional digoxin 0.25 mg daily. The patient transitioned from the Critic al Care Unit to Medical Oncology unit receiving general supportive measures as well as transitioning from heparin infusion to subcutaneous Lovenox. The patient was able to transition to oxygen by liyah al cannula, maintaining O2 saturations in the mid 90% range on 2-3 liters per minute by nasal cannul a. Due to patient's extensive metastatic process and clot burden, patient was evaluated by Palliati ve Care Service. The patient was deemed an appropriate candidate for palliative care as well as con sideration for hospice care, at which the patient and family decided to pursue hospice. Patient was evaluated in [facility] for home care and ready for discharge on 06/15/2017. DISCHARGE MEDICATIONS: 1. Allopurinol 300 mg 1 tab p.o. daily. 2. Flexeril 10 mg 1 tab p.o. t.i.d. 3. Digoxin 0.125 mg p.o. daily. 4. Diltiazem CD 360 mg p.o. daily. 5. Flonase allergy spray 2 sprays in each naris daily. 6. Gabapentin 300 mg p.o. at bedtime. 7. [place] 5/325 mg 1 tab p.o. q.6 hours p.r.n. pain. 8. Metoprolol tartrate 25 mg p.o. b.i.d. 9. Xarelto 15 mg p.o. b.i.d. x21 days, followed by 20 mg p.o. daily. FOLLOWUP: Patient will follow up with [facility] at home on discharge. CONDITION ON DISCHARGE: Poor. ACTIVITY: Ad maynor. DIET: Regular as tolerated. CODE STATUS: DO NOT RESUSCITATE, DO NOT INTUBATE. DISPOSITION: Discharge to home with [facility], 06/15/2017. Total time in preparing and coordinating this discharge was 35 minutes.
[2017-06-15 15:31] VITALS: BP 112/56; TEMP 97.6
[2017-06-16] MEDS ORDERED: Digoxin 0.25 MG TAB PO SCH (09:00)
== END 2017-06-15 17:35 | disposition hospice, home (50) | DRG 166 ==
LOC: ERS 17:41 → CCU 21:07 → ONC 06-14 11:32
PROVIDERS: ADMIT Internal Medicine; ATTEND Internal Medicine
PROC: 3E03317 Introduction of Other Thrombolytic into Peripheral Vein, Percutaneous Approach (ICD-10-PCS; principal; 2017-06-10)
PROC: 0PBB3ZX Excision of Left Clavicle, Percutaneous Approach, Diagnostic (ICD-10-PCS; 2017-06-12)
DX: I26.92 Saddle embolus of pulmonary artery without acute cor pulmonale (principal); J96.01 Acute respiratory failure with hypoxia; I48.91 Unspecified atrial fibrillation; C79.31 Secondary malignant neoplasm of brain; C79.51 Secondary malignant neoplasm of bone; I82.411 Acute embolism and thrombosis of right femoral vein; C34.90 Malignant neoplasm of unspecified part of unspecified bronchus or lung; I82.441 Acute embolism and thrombosis of right tibial vein; I82.432 Acute embolism and thrombosis of left popliteal vein; I82.442 Acute embolism and thrombosis of left tibial vein; Z51.5 Encounter for palliative care; Z66 Do not resuscitate; I10 Essential (primary) hypertension; Z87.891 Personal history of nicotine dependence
CPT/HCPCS: 36415; 36593; 70450; 70553; 71010; 71250; 71275; 77012; 80048; 80053; 82378; 82550; 82553; 82565; 83605; 83690; 84484; 85007; 85014; 85018; 85025; 85027; 85049; 85379; 85610; 85730; 87040; 88305; 88313; 88333; 88341; 88342; 93005; 93970; 96361; 96365; 96366; 96367; 96368; 96375; 96376; 99292; A4216; J1160; J1644; J1650; J1956; J2270; J2543; J2997; J3370; J7050